=== PATIENT | male | born 1985 | race Two or more races ===

== ENCOUNTER 2021-03-08 18:12 | Emergency (ER) | payer OTHER ==
[~2021-03-08] VITALS: Ht 195.6 cm; Wt 120.2 kg
--- NOTE | 2021-03-08 18:20 | NUR ---
SOFT NECK COLLAR APPLIED.
[2021-03-08 18:23] VITALS: BP 150/74
--- NOTE | 2021-03-08 18:30 | NUR ---
TOLD GLENDA OF ADMITTING THAT THE PATIENT'S NAME IS KEO ALMENDAREZ NOT BLANQUITA ALMENDAREZ LISTED. ADMITTING CHANGED THE NAME, HIRAM CARRIZALES
[2021-03-08] MEDS ORDERED: HYDROCODONE/APAP 5/325MG TABLET ONE (18:53)
[2021-03-08] MEDS ORDERED: HYDROCODONE/APAP 5/325MG TABLET PO ONE (19:00)
[2021-03-08] MEDS ORDERED: IOHEXOL-300 100 ML VIAL IV ONE (19:03)
[2021-03-08] MEDS ORDERED: IV NS 0.9% 250 ML IV ONE (19:03)
[2021-03-08] MEDS ORDERED: CT SWABBABLE VALVE TRANS SET 1 EA INFUS.SET MC ONE (19:03)
[2021-03-08 19:28] LABS: CALCIUM, SERUM 8.6 mg/dL (8.5-10.1); CREATININE 0.9 mg/dL (0.6-1.3); POTASSIUM 3.8 mmol/L (3.5-5.1)
[2021-03-08] MEDS ORDERED: HYDR-4303 PO (20:20)
[2021-03-08] MEDS ORDERED: IBUP-1955 PO (20:20)
== END 2021-03-08 20:30 | disposition home or self-care (01) ==
LOC: ER 18:26 → EDBD 18:26 → ER 20:30
DX: M54.2 Cervicalgia (principal); M54.6 Pain in thoracic spine; M54.50 Low back pain, unspecified; R10.31 Right lower quadrant pain; Z79.1 Long term (current) use of non-steroidal anti-inflammatories (NSAID); Z79.899 Other long term (current) drug therapy; V49.9XXA Car occupant (driver) (passenger) injured in unspecified traffic accident, initial encounter; Y93.89 Activity, other specified; Y92.89 Other specified places as the place of occurrence of the external cause; Y99.8 Other external cause status
CPT/HCPCS: 36415; 71260; 72125; 74177; 80048; 99285; J7050; Q9967